=== PATIENT | male | born 1985 | race Caucasian/White ===

== ENCOUNTER → 2020-08-20 | Outpatient (CLI) | payer OTHER | LOC: RAD 15:40 | DX: M41.9 Scoliosis, unspecified (principal); L57.9 Skin changes due to chronic exposure to nonionizing radiation, unspecified ==

== ENCOUNTER 2020-08-30 13:47 | Outpatient (RCR) | payer OTHER | END 2020-11-28 | disposition home or self-care (01) | LOC: PT | DX: M54.9 Dorsalgia, unspecified (principal) ==